=== PATIENT | female | born 1955 | race Caucasian/White ===

== ENCOUNTER 2019-04-08 15:41 | Emergency (ER) | payer OTHER ==
[~2019-04-08] VITALS: Ht 165.1 cm; Wt 108.9 kg
[~2019-04-08 15:41] MED LIST: ROBAXIN500 MG PO
[2019-04-08] MEDS ORDERED: NORCO 5-325 TA1 EACH PO (16:47)
[2019-04-08] MEDS ORDERED: IBUPROFEN 800800 M1 PO (16:47)
[2019-04-08 17:58] VITALS: BP 175/80
== END 2019-04-08 17:59 | disposition home or self-care (01) ==
LOC: M.ERS 15:41
PROC: 0PSVXZZ Reposition Left Finger Phalanx, External Approach (ICD-10-PCS; principal; 2019-04-08)
DX: S62.522A Displaced fracture of distal phalanx of left thumb, initial encounter for closed fracture (principal); I10 Essential (primary) hypertension; E03.9 Hypothyroidism, unspecified; F32.9 Major depressive disorder, single episode, unspecified; Z88.8 Allergy status to other drugs, medicaments and biological substances; W22.01XA Walked into wall, initial encounter; Y93.89 Activity, other specified; Y92.89 Other specified places as the place of occurrence of the external cause; Y99.8 Other external cause status

== ENCOUNTER 2019-10-03 21:25 | Emergency (ER) | payer OTHER ==
[~2019-10-03] VITALS: Ht 165.1 cm; Wt 108.9 kg
[~2019-10-03 21:25] MED LIST changes: +IBUPROFEN 800800 M1 PO; +NORCO 5-325 TA1 EACH PO
[2019-10-03] MEDS ORDERED: AMBIEN5 MG PO (21:40)
[2019-10-03] MEDS ORDERED: NORVASC 2.5 MG2.5 M1 PO (21:40)
[2019-10-03] MEDS ORDERED: ZANAFLEX4 M1 PO (21:41)
[2019-10-03] MEDS ORDERED: LEVOTHYROXINE (21:41)
[2019-10-03] MEDS ORDERED: MICROZIDE12.5 MG PO (21:42)
[2019-10-03] MEDS ORDERED: LIPITOR40 MG PO (21:42)
[2019-10-03] MEDS ORDERED: HYDROXYZINE HCL50 MG PO (21:42)
[2019-10-03] MEDS ORDERED: SYMBICORT80 MCG/4.1 INH (21:43)
[2019-10-03] MEDS ORDERED: CATAPRES-TTS 11 EACH TRANSDERM (21:43)
[2019-10-03] MEDS ORDERED: METFORMIN HCL500 M3 PO (21:43)
[2019-10-03] MEDS ORDERED: LORATIDINE 10 M10 M1 PO (21:44)
[2019-10-03] MEDS ORDERED: ALBUTEROL2.5 MG/0.1 INH (21:44)
[2019-10-03] MEDS ORDERED: ACID CONTROLLER20 MG PO (21:45)
[2019-10-03] MEDS ORDERED: AMOXICILLIN875 MG PO (22:04)
[2019-10-03] MEDS ORDERED: HYDROCODON-ACE1 EAC8 PO (22:04)
[2019-10-03 22:18] VITALS: BP 174/100
== END 2019-10-03 22:18 | disposition home or self-care (01) ==
LOC: M.ERS 21:25
DX: H92.01 Otalgia, right ear (principal); F32.9 Major depressive disorder, single episode, unspecified; I10 Essential (primary) hypertension; E03.9 Hypothyroidism, unspecified; Z88.8 Allergy status to other drugs, medicaments and biological substances

== ENCOUNTER → 2020-02-04 | Outpatient (CLI) | payer OTHER ==
[~2020-02-04] MED LIST changes: +ACID CONTROLLER20 MG PO; +ALBUTEROL2.5 MG/0.1 INH; +AMBIEN5 MG PO; +AMOXICILLIN875 MG PO; +CATAPRES-TTS 11 EACH TRANSDERM; +HYDROCODON-ACE1 EAC8 PO; +HYDROXYZINE HCL50 MG PO; +LEVOTHYROXINE; +LIPITOR40 MG PO; +LORATIDINE 10 M10 M1 PO; +METFORMIN HCL500 M3 PO; +MICROZIDE12.5 MG PO; +NORVASC 2.5 MG2.5 M1 PO; +SYMBICORT80 MCG/4.1 INH; +ZANAFLEX4 M1 PO
== END ==
LOC: M.RAD 10:30 → M.MRI 11:30
DX: M81.0 Age-related osteoporosis without current pathological fracture (principal); M51.26 Other intervertebral disc displacement, lumbar region; M48.061 Spinal stenosis, lumbar region without neurogenic claudication; M47.817 Spondylosis without myelopathy or radiculopathy, lumbosacral region; Z78.0 Asymptomatic menopausal state; Z98.1 Arthrodesis status

== ENCOUNTER → 2020-04-21 | Outpatient (CLI) | payer OTHER | LOC: M.ULTRA 10:12 | DX: N18.4 Chronic kidney disease, stage 4 (severe) (principal) ==

== ENCOUNTER → 2020-12-08 | Outpatient (CLI) | payer OTHER | LOC: M.RAD 12-03 13:00 → M.MRI 12-03 13:20 → M.RAD 12:50 → M.MRI 13:30 | PROVIDERS: ATTEND Family Medicine | DX: Z12.31 Encounter for screening mammogram for malignant neoplasm of breast (principal) ==

== ENCOUNTER 2021-03-03 18:03 | Observation (INO) | payer OTHER ==
[~2021-03-03] VITALS: Ht 165.1 cm; Wt 109.8 kg
[~2021-03-03 18:03] MED LIST changes: +HYDROCHLOROTH12.5 M1 PO; -MICROZIDE12.5 MG PO
[2021-03-03 18:17] VITALS: BP 207/120
[2021-03-03] MEDS ORDERED: JANUVIA25 MG PO (18:22)
[2021-03-03] MEDS ORDERED: LEVO-T100 MCG PO (18:22)
[2021-03-03] MEDS ORDERED: BELSOMRA5 MG PO (18:23)
[2021-03-03] MEDS ORDERED: ZESTRIL40 MG PO (18:23)
[2021-03-03 18:41] LABS: ABSOLUTE BASOPHILS 0.1 thou/uL (0.0-0.2); ABSOLUTE LYMPHOCYTES 3.2 thou/uL (0.8-5.3); ABSOLUTE MONOCYTES 0.8 thou/uL (0.0-1.2); ABSOLUTE NEUTROPHILS 10.2 thou/uL (1.6-8.1); BASOPHILS 0.6 %; EOSINOPHILS 0.1 %; HEMOGLOBIN 16.4 gm/dL (12.0-15.0); LYMPHOCYTES 22.2 %; MCH 28.4 pg (26.0-34.0); MCHC 32.8 g/dL (28.0-37.0); MCV 86.5 fL (80.0-100.0); MONOCYTES 5.6 %; MPV 7.5 fl. (7.2-11.1); NUCLEATED RBCS 0 /100WBC; PLATELET COUNT* 283 thou/uL (150-400); POLYS 71.5 %; RBC 5.79 mil/uL (4.20-5.00); RDW-CV 13.9 % (10.5-14.5); WBC 14.3 thou/uL (4.0-11.0)
[2021-03-03 18:55] LABS: CALCIUM 9.3 mg/dL (8.5-10.1); CREATININE 1.6 mg/dL (0.6-1.3); POTASSIUM 4.7 mmol/L (3.5-5.1)
[2021-03-03 18:59] LABS: ALBUMIN 3.4 g/dL (3.4-5.0); TOTAL BILIRUBIN 0.7 mg/dL (<0.1-1.0); TOTAL PROTEIN 7.7 g/dL (6.4-8.2)
[2021-03-04 01:00] VITALS: BP 144/94
[2021-03-04 01:01] LABS: URINE BILIRUBIN NEGATIVE (Negative); URINE BLOOD NEGATIVE (Negative); URINE CLARITY CLEAR; URINE COLOR YELLOW; URINE GLUCOSE-RANDOM NEGATIVE (Negative); URINE KETONES TRACE (Negative); URINE LEUKOCYTES-REFLEX 1+ (Negative); URINE NITRITE-REFLEX NEGATIVE (Negative); URINE PROTEIN NEGATIVE (Negative); URINE UROBILINOGEN 0.2 E.U./dl (0.2-1.0)
[2021-03-04 01:15] VITALS: BP 143/65
[2021-03-04 01:21] LABS: BACTERIA-REFLEX >30 Many /HPF (None Seen); CASTS None Seen /LPF (None Seen); CRYSTALS None Seen /LPF (None Seen); MUCUS 4-6 Moderate strn/LPF (None Seen); SQUAMOUS 4-10 Moderate /LPF (0-3); TRANSITIONAL EPITHEL CELL 0-3 Few /LPF (None Seen); URINE RBC 3-10 Few /HPF (0-2); URINE WBC-REFLEX >25 Many /HPF (0-5); WBC CLUMPS Few (None Seen)
[2021-03-04 08:00] VITALS: BP 159/60
--- NOTE | 2021-03-04 11:15 | EKG ---
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
--- NOTE | 2021-03-04 11:18 | EKG ---
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1955 Requested By: Katlin Canas Order Number: [id number] MD: Raymond Dwyer Measurements Intervals [place] Rate: 89 P: 70 OR: 159 QRS: 86 QRSD: 112 T: -1 QT: 349 QTc: 425 Interpretive Statements Sinus rhythm Borderline intraventricular conduction delay Borderline repolarization abnormality Compared to ECG 03/03/2021 18:41:58 Atrial premature complex(es) no longer present Electronically Signed On 03-04-2021 11:18:41 CDT by Raymond Dwyer [email or web address] <ELECTRONICALLY SIGNED> By: Raymond Dwyer MD, [facility] 03/04/21 1118 01 01 Raymond Dwyer MD, [facility] /EPI
[2021-03-04 11:29] VITALS: BP 159/60
--- NOTE | 2021-03-04 13:55 | 2DMMODE ---
[place] [address] 2 D/M-MODE ECHOCARDIOGRAM Name: JOHNY BRADLEY Room: [address] Tom Bucio#: [id number] Admission: 03/04/21 Attend Phys: Johnathon Burnham Discharge: Date of : 59 Date of Service: 03/04/21 1354 Report #: [id number] THIS REPORT FOR: cc: Jenni Smalls Maggie M. DO Blick, David R. MD [facility] ~ APPROVED REPORT Study performed: 03/04/2021 10:23:46 EXAM: Comprehensive 2D, Doppler, and color-flow Echocardiogram Patient Location: In-Patient Room #: [facility] [place] Status: routine BSA: 2.12 HR: 88 bpm Rhythm: NSR Other Information Study Quality: Good 2D Dimensions IVSd: 10.42 (7-11mm) LVOT Diam: 19.13 (18-24mm) LVDd: 42.20 mm PWd: 8.89 (7-11mm) Ascending Ao: 32.33 (22-36mm) LVDs: 23.63 (25-40mm) Aortic Root: 32.58 mm Volumes Left Atrial Volume (Systole) LA ESV Index: 14.50 mL/m2 Aortic Valve AoV Peak Matteo.: 1.59 m/s AO Peak Gr.: 10.10 mmHg LVOT Max P.75 mmHg AO Mean Gr.: 5.76 mmHg LVOT Mean P.35 mmHg LVOT Max V: 0.83 m/s AO V2 VTI: 33.83 cm LVOT Mean V: 0.54 m/s JOSE (VTI): 1.41 cm2 LVOT V1 VTI: 16.55 cm AI [place]: 2.61 m/s2 AI PHT: 471.66 [place] [address] 2 D/M-MODE ECHOCARDIOGRAM Name: LYNDSAY BRADLEYSURAJ Valdovinos Room: [address] Fortunato#: [id number] Admission: 03/04/21 Attend Phys: Johnathon Burnham Discharge: Date of : 59 Date of Service: 03/04/21 1354 Report #: [id number] E/A Ratio: 0.70 MV [place]. Time: 153.32 ms MV E Max Matteo.: 0.59 m/s MV PHT: 44.46 ms MVA (PHT): 4.95 cm2 TDI E/Lateral E': 7.38 E/Medial E': 6.56 Medial E' Matteo.: 0.09 m/s Lateral E' Matteo.: 0.08 m/s Pulmonary Valve PV Peak Matteo.: 1.00 m/s PV Peak Gr.: 4.02 mmHg Tricuspid Valve RAP Estimate: 5.00 mmHg TR Peak Gr.: 22.88 mmHg RVSP: 27.00 mmHg PA Pressure: 27.00 mmHg Left Ventricle The left ventricle is normal size. There is normal LV segmental wall motion. There is normal left ventricular wall thickness. Left ventricular systolic function is normal. The left ventricular ejection fraction is within the normal range. LVEF is 60-65%. Grade I - abnormal relaxation pattern. Right Ventricle Right ventricle is dilated. The right ventricular systolic function is normal. Atria The left atrium size is normal. Right atrium is dilated. Aortic Valve Aortic valve is calcified. Mild aortic regurgitation. Mild aortic stenosis. Mitral Valve The mitral valve is normal in structure. Trace mitral regurgitation. No evidence of mitral valve stenosis. Tricuspid Valve The tricuspid valve is normal in structure. Mild tricuspid regurgitation. [place] [address] 2 D/M-MODE ECHOCARDIOGRAM Name: JOHNY BRADLEY Room: [address]#: [id number] Admission: 03/04/21 Attend Phys: Johnathon Burnham Discharge: Date of : 59 Date of Service: 03/04/21 1354 Report #: [id number] The pulmonary valve is normal in structure. There is no pulmonic valvular regurgitation. Great Vessels The aortic root is normal in size. IVC is normal in size and collapses >50% with inspiration. Pericardium There is no pericardial effusion. <Conclusion> LVEF is 60-65%. Mild aortic stenosis. Mild aortic regurgitation. <ELECTRONICALLY SIGNED> By: Raymond Dwyer MD, [facility] 03/04/21 1354 1354 1354 Raymond Dwyer MD, FACC /INF
[2021-03-04 13:56] VITALS: BP 159/60
--- NOTE | 2021-03-04 14:57 | CON ---
[address] [address] CONSULTATION Name: JOHNY BRADLEY Room: [address] Tom Bucio#: [id number] Admission: 03/04/21 Attend Phys: Yobani Prajapati Discharge: Date of : 59 Report #: [id number] THIS REPORT FOR: cc: Jenni Smalls Maggie M. DO Blick, David R. MD [facility] ~ DATE OF SERVICE: 03/04/2021 CARDIOLOGY CONSULTATION HISTORY OF PRESENT ILLNESS: The patient is a 65-year-old single white female who I was asked to see in the hospital today after she complained of diaphoresis. The patient denies a history of heart disease. She is not very active at this time. The patient states she has not felt well for a couple of days. She felt diaphoretic. She denied any fever. She does have a chronic cough. She went to see her primary care physician yesterday, Dr. Smalls and her blood pressure is elevated. She felt nauseated. She was instructed to come to the hospital to be admitted for further evaluation and treatment. She denies any chest pain, increased shortness of breath, palpitations, syncope or peripheral edema. PAST MEDICAL HISTORY: She has had previous back surgery, ankle surgery, hypertension, diabetes, history of depression. CURRENT MEDICATIONS: Include Norvasc, hydrochlorothiazide, Synthroid, Januvia, lisinopril. She previously was on Lipitor. ALLERGIES: SHE HAS A PREVIOUS INTOLERANCE TO THIOPENTAL. FAMILY HISTORY: Father, heart disease. SOCIAL HISTORY: She is , lives with 2 friends in [place]. She has been in the past. Smokes half pack of cigarettes a day. No alcohol abuse, no illicit drug use. REVIEW OF SYSTEMS: She is overweight, being 5 feet 5, 236 pounds. No history of stroke. She does have COPD and uses inhaler. She has a chronic cough. No history of liver disease, kidney disease or cancer. She has a history of depression, saw a psychiatrist in the past. No chronic skin condition. PHYSICAL EXAMINATION: GENERAL: Revealed a middle-aged female lying in bed. She appeared in no acute distress. VITAL SIGNS: She had a blood pressure of 140/90, pulse is 100[place] [address] CONSULTATION Name: JOHNY BRADLEY Room: [address] Tom Bucio#: [id number] Admission: 03/04/21 Attend Phys: Yobani Prajapati Discharge: Date of : 59 Report #: [id number] afebrile. HEENT: She was anicteric. Conjunctivae pink. Mucous membranes are moist. NECK: Veins do not appear distended. No carotid bruits. CHEST: Revealed late expiratory wheezes. CARDIOVASCULAR: Regular rate and rhythm, grade 2 systolic ejection murmur. ABDOMEN: Obese. EXTREMITIES: Had no pitting edema. Dorsalis pedis pulse 1+ bilaterally. SKIN: Cool and dry. NEUROLOGIC: Nonfocal. Her ECG on admission showed a sinus rhythm, incomplete right bundle branch block. Her x-rays, she had a portable chest x-ray in the Emergency Room that showed normal heart size, clear lung [place]. She actually had a CT scan of the head without contrast that showed no acute abnormalities, chronic white vascular changes. LABORATORY WORK: Sodium 139, creatinine is 1.6. Troponin 0.06. Hemoglobin 16.4. IMPRESSION AND RECOMMENDATIONS: 1. Nausea and diaphoresis. Reason unclear. 2. Hypertension. The patient has been on calcium david, diuretic, LEISA inhibitor. 3. History of hyperlipidemia. The patient was on a statin drug in the past. 4. Tobacco abuse. 5. Chronic bronchitis. 6. Obesity. 7. History of depression. <ELECTRONICALLY SIGNED> By: Raymond Dwyer MD, FACC 03/04/21 1457 0930 [id number] Dwyer MD, FACC /nt
== END 2021-03-04 15:00 | disposition home or self-care (01) ==
LOC: M.ERS 18:03 → M.TBA-ER 03-04 00:37 → M.2W 03-04 00:37
PROVIDERS: Physician Assistant; ADMIT Internal Medicine; ATTEND Internal Medicine
DX: I16.0 Hypertensive urgency (principal); Z20.822 Contact with and (suspected) exposure to COVID-19; R07.89 Other chest pain; R11.0 Nausea; F17.210 Nicotine dependence, cigarettes, uncomplicated; I10 Essential (primary) hypertension; E03.9 Hypothyroidism, unspecified; E11.9 Type 2 diabetes mellitus without complications; F32.9 Major depressive disorder, single episode, unspecified; R05 Cough; E78.5 Hyperlipidemia, unspecified; E66.9 Obesity, unspecified; J42 Unspecified chronic bronchitis; Z98.890 Other specified postprocedural states

== ENCOUNTER 2021-10-21 16:56 | Emergency (ER) | payer OTHER ==
[~2021-10-21] VITALS: Ht 165.1 cm; Wt 117.9 kg
[~2021-10-21 16:56] MED LIST changes: +BELSOMRA5 MG PO; +JANUVIA25 MG PO; +LEVO-T100 MCG PO; +ZESTRIL40 MG PO
[2021-10-21] MEDS ORDERED: ZPAK PO (17:53)
[2021-10-21] MEDS ORDERED: PREDNISONE 20 M20 M1 PO (17:53)
[2021-10-21 18:12] VITALS: BP 136/72
== END 2021-10-21 18:13 | disposition home or self-care (01) ==
LOC: M.ERS 16:56
DX: J40 Bronchitis, not specified as acute or chronic (principal); F32.9 Major depressive disorder, single episode, unspecified; E11.9 Type 2 diabetes mellitus without complications; I10 Essential (primary) hypertension; E03.9 Hypothyroidism, unspecified; M19.90 Unspecified osteoarthritis, unspecified site; F17.210 Nicotine dependence, cigarettes, uncomplicated; Z79.899 Other long term (current) drug therapy; Z88.8 Allergy status to other drugs, medicaments and biological substances